=== PATIENT | female | born 1980 | race African-American/Black ===

== ENCOUNTER 2018-12-15 18:38 | Inpatient (IN) | payer BC, OTHER ==
[2018-12-14 12:43] VITALS: BMI 21.1
--- NOTE | 2018-12-15 16:06 | OP ---
Operative Note - Note: Operative Date: 12/15/18 Pre-Operative Diagnosis: Leiomyoma, uterine bleeding Operation: Open abdominal hysterectomy, bilateral salpingectomy Findings: as dictated Post-Operative Diagnosis: Same as Pre-op Surgeon: Elijah Yañez Research Electrician: Ania Cherry Anesthesiologist/TRAVELING ENGINEER: Aurelio Basurto Anesthesia: General, Local (20cc .25% Marcaine injected to incision at completion of case) Specimens Removed: uterus, cervix, bilateral fallopian tubes, scar tissue Estimated Blood Loss (mls): 150 (ml) Drains, Volume Out (mls): 300 (cc yellow urine) Fluid Volume Replaced (mls): 1 (L LR) Operative Report Dictated: Yes
--- NOTE | 2018-12-15 16:07 | SURG ---
Surgery Sugarcane Planter Note Sugarcane Planter: Ania Cherry PA-C (Suzy) Date of Service: 12/15/18 Diagnosis: Leiomyoma, uterine bleeding Procedure: Open abdominal hysterectomy, bilateral salpingectomy I was present for the entirety of the operative procedure. For further detail, please refer to operative report. Visit type - Case Type Case Type: Scheduled - Emergency Emergency Visit: No - New patient This patient is new to me today: Yes Date on this admission: 12/15/18 - Critical Care Critical Care patient: No
[2018-12-15] MEDS: ACETAMINOPHEN 1000 MG/100 ML VIAL (NON FORMULARY) IVPB SCH ×2 (16:53→22:39)
[~2018-12-15 18:38] MED LIST: BENZOCAINE/MENTH/CETYLPYRD CL 1 EACH LOZENGE MM PRN; BUPIVACAINE HCL/PF 0.5% (5MG/ML) 10 ML VIAL IJ ONE; CEFAZOLIN 2 GM in DEXTROSE 5%-WATER 100 ML IVPB ONE; LACTATED RINGERS SOLUTION 1,000 ML IV SCH; MORPHINE SULFATE 2 MG/ML VIAL IVPUSH PRN; ONDANSETRON 4 MG/2 ML VIAL IVPUSH PRN; POLYETHYLENE GLYCOL 3350 119 GM BTL PO PRN; ceFAZolin SODIUM 1 GM VIAL IVPB ONE; morphine SULFATE 4 MG/ML VIAL IVPUSH PRN; oxyCODONE HCL 5 MG TABLET PO PRN
[2018-12-15] MEDS ORDERED: IBUPROFEN 800 MG/8 ML IJ IVPB PRN (19:00)
[2018-12-15] MEDS: MORPHINE SULFATE 2 MG/ML VIAL IVPUSH PRN (20:17)
[2018-12-15] MEDS: CEFAZOLIN 2 GM in DEXTROSE 5%-WATER 100 ML IVPB SCH (21:40)
[2018-12-15] MEDS: DOCUSATE SODIUM 100 MG CAPSULE (FP) PO SCH (22:08)
[2018-12-16] MEDS: MORPHINE SULFATE 2 MG/ML VIAL IVPUSH PRN (01:00)
[2018-12-16] MEDS: CEFAZOLIN 2 GM in DEXTROSE 5%-WATER 100 ML IVPB SCH (01:37)
[2018-12-16] MEDS: ACETAMINOPHEN 1000 MG/100 ML VIAL (NON FORMULARY) IVPB SCH ×2 (05:22→09:56)
[2018-12-16 08:51] LABS: BLOOD UREA NITROGEN 8.8 mg/dL (7-18); CALCIUM 9.6 mg/dL (8.5-10.1); CREATININE 0.6 mg/dL (0.55-1.3); POTASSIUM 4.7 mmol/L (3.5-5.1)
[2018-12-16 08:52] LABS: BASO % 0.2 % (0-2.0); HEMATOCRIT 29.8 % (32.4-45.2); HEMOGLOBIN 9.6 GM/dL (10.7-15.3); LYMPH % 9.3 % (8-40); MCH 25.5 pg (25.7-33.7); MCHC 32.3 g/dl (32.0-36.0); MEAN CELL VOLUME 78.9 fl (80-96); MEAN PLT VOLUME 7.9 fl (7.5-11.1); MONO % 9.4 % (3.8-10.2); NEUT % 81.1 % (42.8-82.8); PLATELET COUNT 450 K/MM3 (134-434); RBC 3.78 M/mm3 (3.60-5.2); RDW 15.7 % (11.6-15.6); WHITE BLOOD COUNT 8.3 K/mm3 (4.0-10.0)
--- NOTE | 2018-12-16 08:54 | OP ---
DATE OF OPERATION: DATE OF DICTATION: 12/15/2018 PREOPERATIVE DIAGNOSIS: 1. Large, growing, symptomatic uterine leiomyomata, failure of conservative therapy. 2. Pelvic pain, dysfunctional uterine bleeding. POSTOPERATIVE DIAGNOSIS: 1. Large, growing, symptomatic uterine leiomyomata, failure of conservative therapy. 2. Pelvic pain, dysfunctional uterine bleeding. 3. Pelvic and abdominal adhesions. OPERATION: 1. Total abdominal hysterectomy and bilateral salpingectomy. 2. Lysis of adhesions. 3. Removal of keloid. SURGEON: Otilio Nava MD ANESTHESIA: General. ANESTHESIOLOGIST: Shanna Bermudez MD CATTLE BRANDER: SKYE Urrutia PROCEDURE AND FINDINGS: Under excellent spinal anesthesia, patient was placed in dorsal supine position, scrubbed and draped in the normal fashion. Using fine- tipped Bovie, keloid was removed in a wedge-like fashion. The incision was carried through the scar, subcutaneous tissue, and fascia was opened transversely. Recti muscles were dissected out of the fascia and in the midline. Peritoneum was entered in the upper part of the incision and extended vertically. Multiple adhesions between omentum and abdominal wall as well as scar tissue around the bladder flap and attaching bladder to the anterior wall of the uterus were noted. All adhesions were then removed by sharp dissection. There were no problems with restoring of the anatomy. Uterus was noted to be enlarged, irregular, compatible with 14 weeks. Fallopian tubes were status post tubal sterilization. Both ovaries were within normal limits. Fallopian tubes were resected using LigaSure device and sent as specimens. Right-sided round ligament was divided. Bladder was dissected off the uterus, and anterior leaf of broad ligament was opened. Utero-ovarian ligament was then isolated and divided using LigaSure. Bladder was taken down and uterine vessels were skeletonized. The plexuses were then clamped using Cash clamps and divided and suture ligated using Vicryl 0 suture. Cardinal ligament and uterosacral ligament on the right side were then also clamped, divided, and suture ligated. The same procedure was then repeated on the left side. Round ligament, utero- ovarian ligament, bladder flap, and uterine vessels were divided. Anterior fornix was then identified, entered sharply. Using Mary scissors, uterus was completely excised. Vagina was then closed using modified Te Rylan Vicryl 0 sutures on the angles, which were also sewn into cardinal ligament stumps. The vaginal vault was then closed with figure-of-8 Vicryl 0 sutures attaching them also to the stumps of the uterosacral ligament for better support. Pelvis was lavaged, and hemostasis was attended to meticulously. Lavage was carried out and abdomen and pelvis were evaluated carefully. Then, Surgicel were placed on the raw area. Abdomen was closed in layers. Peritoneum was closed with continuous running Biosyn 3-0 suture. Fascia was closed with continuous running Vicryl 1 suture. Subcutaneous layer was approximated with interrupted Biosyn 3-0 suture and the same suture in the subcuticular version was used to approximate the skin edges. Steri-Strips were applied. Loose dressing was placed on the incision and held with a binder. Total blood loss was 150 mL. Urine was clear and ample in the Rainey catheter bag. Patient was awakened and transferred to PACU comfortable and stable. There was no complication with operation. MD OSMAN PARKER/[id number] MTDD
[2018-12-16] MEDS: DOCUSATE SODIUM 100 MG CAPSULE (FP) PO SCH ×2 (09:55→21:01)
--- NOTE | 2018-12-16 09:55 | PN ---
Progress Note (short form) - Note Progress Note: POD 1, s/p Open abdominal hysterectomy, bilateral salpingectomy Pt seen and examined. Reports she is feeling well. Tolerating clears, requesting more food. Requesting PO Ibuprofen vs IV. States Tylenol is helping with pain Denies cp/sob, n/v/d, calf pain. Has been oob without issue. Vital Signs Temp 98.4 F 12/16/18 06:25 Pulse 60 12/16/18 06:25 Resp 18 12/16/18 06:25 BP 119/73 12/16/18 06:25 Pulse Ox 100 12/16/18 05:44 Intake & Output 12/15/18 12/15/18 12/16/18 11:59 23:59 11:59 Intake Total 2150 150 Output Total 350 1500 Balance 1800 -1350 Weight 131 lb Intake: IV 1900 IVPB 200 150 Oral 50 Output: Urine 200 1500 Salter 1250 Void 250 Estimated Blood Loss 150 Other: Voiding Method Indwelling Catheter Toilet Height 5 ft 6 in Body Mass Index (BMI) 21.1 CBC, BMP 12/16/18 07:31 12/16/18 07:31 Gen: awake, alert, nad, sitting up in bed eating breakfast Resp: Unlabored on RA Abdo: soft, minimally ttp near incision (appropriate to status) 4x4s with minimal serosanguinous drainage (new 4x4s placed), steri-strips in place no erythema or drainage noted from incision. Ext: b/l calf soft no ttp A/P: 38 y/o F w/ h/o leimomyomas/pelvic pain s/p embolization in the past, now POD 1 s/p Open abdominal hysterectomy, bilateral salpingectomy Afebrile, VSS H/H stable, creatinine -TOV (salter removed at 5AM) -Regular diet -OOB -Pain control with Oxycodone 5/10mg q6hrs prn, PO Tylenol 650mg q6hrs prn, Po Ibuprofen 600mg q6hrs, 4mg IV Morphine for BTP -Dvt prophylaxis with b/l scds, early ambulation -Monitor VS per protocol -Monitor I&Os -IS encouraged -Bowel regimen -Plan for d/c tomorrow message sent to Dr Yañez regarding above
[2018-12-16] MEDS ORDERED: IBUPROFEN 600 MG TABLET (FP) PO PRN (10:05)
[2018-12-16] MEDS ORDERED: ACETAMINOPHEN 325 MG TABLET (FP) PO PRN ×2 (16:30→18:00)
[2018-12-17 07:59] LABS: BASO % 0.3 % (0-2.0); EOS % 0.5 % (0-4.5); HEMATOCRIT 27.1 % (32.4-45.2); HEMOGLOBIN 8.9 GM/dL (10.7-15.3); LYMPH % 29.9 % (8-40); MCHC 32.7 g/dl (32.0-36.0); MEAN CELL VOLUME 79.4 fl (80-96); MEAN PLT VOLUME 7.7 fl (7.5-11.1); MONO % 9.5 % (3.8-10.2); NEUT % 59.8 % (42.8-82.8); PLATELET COUNT 379 K/MM3 (134-434); RBC 3.42 M/mm3 (3.60-5.2)
--- NOTE | 2018-12-17 08:27 | PN ---
Progress Note (short form) - Note Progress Note: POD 2, s/p Open abdominal hysterectomy, bilateral salpingectomy Pt seen and examined. Reports she is feeling well. Tolerating PO. Voiding without issue, reports minimal vaginal spotting. Hoping to be discharged this AM. Pain is controlled. Denies cp/sob, n/v/d, calf pain. Has been oob without issue. Vital Signs Temp 98.7 F 12/17/18 04:00 Pulse 78 12/17/18 04:00 Resp 20 12/17/18 04:00 BP 128/83 12/17/18 04:00 Pulse Ox 100 12/16/18 05:44 Intake & Output 12/16/18 12/16/18 12/17/18 11:59 23:59 11:59 Intake Total 150 1050 Output Total 1800 300 Balance -1650 750 Intake: IV 1000 Lactated Ringers Solution 1000 1,000 ml @ 125 mls/hr IV ASDIR JAYCE Rx#: [id number] IVPB 150 50 Output: Urine 1800 300 Rainey 1250 Void 550 300 Other: Voiding Method Toilet Toilet Gen: awake, alert, nad, sitting up in bed eating breakfast Resp: Unlabored on RA Abdo: soft, minimally ttp near incision (appropriate to status) 4x4s with scant serosanguinous drainage (new 4x4s placed), steri-strips in place no erythema or drainage noted from incision. Ext: b/l calf soft no ttp A/P: 38 y/o F w/ h/o leimomyomas/pelvic pain s/p embolization in the past, now POD 2 s/p Open abdominal hysterectomy, bilateral salpingectomy Afebrile, VSS H/H relatively stable -D/C this AM Above d/w Dr Yañez
[2018-12-17 08:29] LABS: BLOOD UREA NITROGEN 6.1 mg/dL (7-18); CALCIUM 9.3 mg/dL (8.5-10.1); CREATININE 0.7 mg/dL (0.55-1.3); POTASSIUM 3.8 mmol/L (3.5-5.1)
[2018-12-17] MEDS: DOCUSATE SODIUM 100 MG CAPSULE (FP) PO SCH (10:00)
[2018-12-17 11:49] VITALS: BP 126/82; PULSE 89; TEMP 98.6
--- NOTE | 2018-12-17 12:25 | DS ---
Physical Exam: SUBJECTIVE: Patient seen and examined. Reports she is feeling well. Tolerating PO. Voiding without issue, reports minimal vaginal spotting. Hoping to be discharged this AM. Pain is controlled. Denies cp/sob, n/v/d, calf pain. Has been oob without issue. OBJECTIVE: Vital Signs Period Temp Pulse Resp BP Sys/Marcial Pulse Ox Last 24 Hr 98.4 F-99.0 F 78-89 20-20 108-128/58-83 PHYSICAL EXAM Gen: awake, alert, nad, sitting up in bed eating breakfast Resp: Unlabored on RA Abdo: soft, minimally ttp near incision (appropriate to status) 4x4s with scant serosanguinous drainage (new 4x4s placed), steri-strips in place no erythema or drainage noted from incision. Ext: b/l calf soft no ttp LABS Laboratory Results - last 24 hr 12/17/18 12/17/18 07:16 07:16 WBC 6.0 RBC 3.42 L Hgb 8.9 L Hct 27.1 L MCV 79.4 L MCH 26.0 MCHC 32.7 RDW 16.0 H Plt Count 379 MPV 7.7 Absolute Neuts (auto) 3.6 Neutrophils % 59.8 D Lymphocytes % 29.9 D Monocytes % 9.5 Eosinophils % 0.5 D Basophils % 0.3 Nucleated RBC % 0 Sodium 140 Potassium 3.8 Chloride 103 Carbon Dioxide 32 Anion Gap 5 L BUN 6.1 L Creatinine 0.7 Est GFR (CKD-EPI)AfAm 126.49 Est GFR (CKD-EPI)NonAf 109.14 Random Glucose 109 H Calcium 9.3 HOSPITAL COURSE: The patient was admitted to the [facility] floor after elective surgery for her leiomyomas/pelvic pain. Now s/p Open abdominal hysterectomy, bilateral salpingectomy. The salter catheter was removed the day after surgery and the patient voided without issue. The patient ambulated the hallways with assistance. Narcotic and non-narcotic pain management control was achieved with an oral and IV approach. Elle-operative IV ABX were administered. DVT prophylaxis was achieved with SCDs and early ambulation. Narcotic scripts were checked with FLS INFECTION CONTROL RN prior to escribe. The discharge instructions and an oral pain management plan were reviewed with the patient. All questions answered. Above plan discussed with Dr. Yañez and agreed. Date of Admission:12/15/18 Date of Discharge: 12/17/18 Minutes to complete discharge: 20 Discharge Summary Reason For Visit: ABNORMAL UTERINE & VAGINAL BLEEDING Condition: Stable - Instructions Diet, Activity, Other Instructions: Discharge Instructions: Wound care You have steri-strips over your incision. Leave these in place. They will peel off in the next 7 to 10 days. Do Not peel them off. You may shower after surgery. If there are tapes present on the skin, they can get wet. When showering, allow soap and water to run over the incision, do not scrub the incision. Pat dry well after showering. You may continue to use the abdominal binder for comfort. When coughing, sneezing or getting up it is helpful to hold a pillow against the incision for comfort. Diet There are no dietary restrictions. Eat healthy, high-fiber foods. Drink 6 to 8 glasses of liquid each day. This will assist in keeping your bowels are regular. You may want to take an over the counter stool softener such as DulcoEase as constipation is a common side effect of narcotic pain medications. Activity: No heavy lifting, exercise or strenuous activity until cleared by your doctor. Do not lift anything heavier than 5 ibs. Increase your activity level bit by bit. We recommend postsurgical breathing and coughing exercises to help keep your lungs clear. You may take the incentive spirometer home with you and continue using it. Do not drive until cleared by your doctor. No sexual activity until cleared by your doctor. The best exercise is walking. Small amounts done frequently are best. It is best to stay mobile to avoid development of blood clots in your legs. Medications: Pain management You may take Tylenol (Acetaminophen) or Ibuprofen (for example, Motrin, Advil etc) for mild pain. Any pain prescription medication ordered should be taken as prescribed for moderate to severe pain. Please take as directed. If the prescribed dosage is not controlling your pain, please contact Dr Yañez. Do not drive, drink alcohol or operate heavy machinery while taking narcotic pain medications. You may Acetaminophen and Ibuprofen alternating. For example, you can take Acetaminophen at 10AM followed by Ibuprofen at 1pm, followed by Acetaminophen again at 4pm. We recommend keeping track of the dosage and time you take each to ensure you do not exceed the electronic components assembler's recommended daily dosage. Take Ibuprofen with food, Acetaminophen may be taken on an empty stomach. Do not exceed 3g (3000mg) of Acetaminophen in 24 hours. Do not exceed 2400mg Ibuprofen in 24 hours. Follow up: Please call the office for a follow up appointment in 3 weeks. Call your doctor immediately if you have: Fever of100.4F(38C) or higher Redness, pain, or drainage at your incision site Bleeding that requires a new sanitary pad every hour Severe pain in the abdomen Pain or urgency with urination Foul odor from vaginal discharge Trouble urinating or emptying your bladder Swollen, red, painful area in the leg ISTOP: [id number] Disposition: HOME - Home Medications Comprehensive Discharge Medication List: Ambulatory Orders Ibuprofen [Motrin -] 200 mg PO DAILY PRN 12/14/18 Ibuprofen [Motrin -] 400 mg PO DAILY PRN 12/14/18 Oxycodone HCl/Acetaminophen [Percocet 5-325 mg Tablet] 1 tab PO Q4H PRN #20 tablet MDD 6 12/16/18 This patient is new to me today: Yes Date on this admission: 12/17/18 Emergency Visit: No Critical Care patient: No - Discharge Referral Referred to [facility] Med [facility].C.: No
--- NOTE | 2018-12-22 17:41 | PATH ---
Surgical Pathology Report Patient Name: RAMAKRISHNA MARIN [facility]. Rec. #: [id number] /Age/Gender: 1980 (Age: 38) / F Account: [id number] Location: [facility] OBS/FOOD SAFETY AUDITOR Taken: 12/15/2018 Received: 12/16/2018 Reported: 12/22/2018 Physicians: Elijah Yañez MD Specimen(s) Received A: ABDOMINAL KELOID TISSUE B: RIGHT FALLOPIAN TUBE C: LEFT FALLOPIAN TUBE D: UTERUS AND CERVIX Clinical History Abnormal uterine and vaginal bleeding Final Diagnosis A. ABDOMINAL KELOID TISSUE, EXCISION: DERMAL SCAR WITH KELOIDAL-TYPE COLLAGEN. B. FALLOPIAN TUBE, RIGHT, SALPINGECTOMY: UNREMARKABLE FALLOPIAN TUBE (INCLUDING FIMBRIATED END AND FULL LUMINAL PORTION). C. FALLOPIAN TUBE, LEFT, SALPINGECTOMY: UNREMARKABLE FALLOPIAN TUBE (INCLUDING FIMBRIATED END AND FULL LUMINAL PORTION). D. UTERUS AND CERVIX, TOTAL ABDOMINAL HYSTERECTOMY: 281 G UTERUS. INTRAMURAL LEIOMYOMA(TA) WITH MARKED DEGENERATIVE CHANGES AND COAGULATIVE NECROSIS. ENDOMETRIAL POLYP AND SECRETORY ENDOMETRIUM. CERVIX WITHOUT SIGNIFICANT PATHOLOGIC FINDINGS. Electronically Signed Claudia Amaya M.D. Gross Description A. Received in formalin labeled "abdominal keloid tissue," is a 9.0 x 0.4 cm brown, elongated, unoriented portion of skin excise to depth of 0.8 cm. The epidermal surface displays a central, linear scar. Etcher Machine sections are submitted in one cassette. B. Received in formalin labeled "right tube," is a 2.2 cm in length fimbriated fallopian tube. The outer surface is brooks-caputo and smooth. Sectioning reveals an unremarkable lumen. Etcher Machine sections are submitted in 2 cassettes as follows: 1-fimbria; 2-cross sections of fallopian tube. C. Received in formalin labeled "left tube," is a 2.5 cm in length fimbriated portion of the tube. The outer surface is brooks-caputo and smooth. Sectioning reveals an unremarkable lumen. Etcher Machine sections are submitted in 2 cassettes as follows: 1-fimbria; 2-cross sections of fallopian tube. D. Received in formalin labeled "uterus and cervix," is a 281 g uterus with an attached cervix and no attached adnexa. The specimen measures 11.2 cm from superior to inferior, 8.0 cm from left to right and 6.2 cm from anterior to posterior. The serosa is brooks and smooth. The attached cervix measures 2.7 cm in length and averages 2.8 cm in diameter. The ectocervix is brooks, smooth and glistening. The endocervix is unremarkable. The endometrial cavity measures 7.5 cm in length and 4.5 cm from cornu to cornu. The entire endometrial cavity is filled with a 7.4 x 4.5 cm brooks, degenerative mass which is attached to the posterior aspect. The cut surface of the mass is focally necrotic. The anterior endometrium displays a 0.8 x 0.6 cm fundic polyp. The remaining endometrium is brooks and averages 0.2 cm in thickness. The myometrium displays a 2.0 cm in greatest dimension degenerative intramural nodule at the fundus. The remaining myometrium is brooks and averages 1.5 cm in thickness. Etcher Machine sections are submitted in 11 cassettes as follows: 1-anterior cervix; 2-posterior cervix; 3-anterior fundic endometrial polyp; 4-6-nzggmzpqul anterior endomyometrium; 6-8-one full thickness section of posterior mass with myometrium and serosa; 3-12-ooigqmbqae full thickness section of posterior mass with myometrium and serosa; 11-intramural nodule from fundus. 12/17/201812/17/2018
== END 2018-12-17 13:00 | disposition home or self-care (01) | DRG 743 ==
LOC: J3W 18:38 → JASUSAT 18:38 → J3W 18:39 → JASUSAT 18:39
PROVIDERS: ADMIT Specialist; ATTEND Specialist
PROC: 0UT70ZZ Resection of Bilateral Fallopian Tubes, Open Approach (ICD-10-PCS; 2018-12-15)
PROC: 0DNW0ZZ Release Peritoneum, Open Approach (ICD-10-PCS; 2018-12-15)
PROC: 0UT90ZZ Resection of Uterus, Open Approach (ICD-10-PCS; principal; 2018-12-15 12:00)
DX: D25.9 Leiomyoma of uterus, unspecified (principal); R10.2 Pelvic and perineal pain; N73.6 Female pelvic peritoneal adhesions (postinfective); L91.0 Hypertrophic scar
CPT/HCPCS: 36415; 80048; 85025; 86900; 88302-TC; 88304-TC; 88307-TC; 94010; 94760; J0131